=== PATIENT | female | born 1935 | race Caucasian/White ===

== ENCOUNTER 2017-03-02 20:59 | Emergency (ER) | payer MEDICARE ==
[2017-03-02 22:25] LABS: ABSOLUTE NEUTROPHIL COUNT 2.2 K/mm3 (1.8-7.7); BASO % 0.3 % (0.2-1.0); EOS # 0.2 (0.0-0.5); EOS % 4.2 % (0.9-2.9); HEMATOCRIT 41.4 % (37.0-47.0); HEMOGLOBIN 13.8 gm/l (12.0-16.0); IMM NEUT% 0.2 % (0-1); LYMPH # 2.8 (1.0-4.8); LYMPH % 47.9 % (15-45); MEAN CELL VOLUME 97.6 fl (81.0-99.0); MEAN CORPUSCULAR HEMOGLOBIN 32.5 pg (27.0-31.0); MEAN CORPUSCULAR HGB CONC 33.3 g/dl (33.0-37.0); MEAN PLATELET VOLUME 11.6 fl (7.4-10.4); MONO # 0.5 (0.0-0.8); MONO % 9.2 % (4-12); NEUT % 38.2 % (43-75); PLATELET COUNT 153 K/mm3 (130-400); RED CELL DISTRIBUTION WIDTH 12.3 % (11.5-14.5)
[2017-03-02 22:38] LABS: ALB/GLOB RATIO 1.1 (>1.0); ALBUMIN 3.5 gm/dL (3.5-5.7); CALCIUM 9.3 mg/dL (8.6-10.3)
[2017-03-02] MEDS ORDERED: LACTATED RINGERS 1,000 ML ONE (22:40)
[2017-03-02] MEDS ORDERED: FENTANYL 100 MCG/2 ML VIAL ONE (22:41)
[2017-03-02 23:54] LABS: SPECIFIC GRAVITY 1.015 (1.001-1.030); URINE BILIRUBIN NEGATIVE (NEGATIVE); URINE BLOOD NEGATIVE (NEGATIVE); URINE GLUCOSE (UA) NEGATIVE (NEGATIVE); URINE LEUKOCYTE ESTERASE NEGATIVE (NEGATIVE); URINE NITRITE NEGATIVE (NEGATIVE); URINE PROTEIN NEGATIVE (NEGATIVE); URINE UROBILINOGEN NORMAL (0-1 mg/dl)
[2017-03-02 23:56] LABS: URINE APPEARANCE CLEAR; URINE COLOR LIGHT YELLOW
--- NOTE | 2017-03-03 08:13 | US ---
ABDOMINAL-LIMITED History: Right upper quadrant pain. Findings: Gallbladder: The gallbladder is not distended. No evidence of cholelithiasis, gallbladder wall thickening, or red-cholecystic fluid is seen. Biliary tree: The common hepatic duct measures 3.4 millimeters adjacent to the hepatic artery. Liver: the visualized liver is homogeneous. No masses or evidence of intra-hepatic biliary dilatation are seen. Impression: 1. No evidence of cholelithiasis or biliary dilatation. The findings were called to the emergency room at 2258 hours, 03/02/2017, by [facility] ([facility] radiology.
== END 2017-03-03 00:35 | disposition home or self-care (01) ==
LOC: ED 20:59
DX: R10.11 Right upper quadrant pain (principal); I10 Essential (primary) hypertension
CPT/HCPCS: 83690; 85025; 80053; 81003; 76705; 99284 ×2; 96374; 96361 ×2; J3010; J7120